=== PATIENT | male | born 1970 | race African-American/Black ===

== ENCOUNTER 2023-08-02 14:22 | Emergency (ER) | payer MEDICAID ==
[~2023-08-02] VITALS: Ht 180.3 cm; Wt 113.4 kg
[2023-08-02 15:02] VITALS: BP 140/68; PULSE 70; RESP 17; TEMP 97.4; O2SAT 98
[2023-08-02 15:48] VITALS: O2SAT 98
[2023-08-02 15:55] LABS: APPEARANCE,URINE CLEAR (CLEAR); BILIRUBIN,URINE NEGATIVE (NEGATIVE); BLOOD, URINE NEGATIVE (NEGATIVE); COLOR,URINE YELLOW (YELLOW); LEUKOCYTE ESTERASE ,URINE NEGATIVE (NEGATIVE); NITRITE, URINE NEGATIVE (NEGATIVE); PROTEIN,URINE NEGATIVE (NEGATIVE); UGLUCOSE NEGATIVE (NEGATIVE)
== END 2023-08-02 16:40 | disposition home or self-care (01) ==
LOC: MED 14:22
DX: R35.0 Frequency of micturition (principal); E11.9 Type 2 diabetes mellitus without complications; I10 Essential (primary) hypertension; F17.200 Nicotine dependence, unspecified, uncomplicated; Z98.890 Other specified postprocedural states
CPT/HCPCS: 81003; 99283

== ENCOUNTER 2024-07-05 13:19 | Emergency (ER) | payer MEDICAID ==
[~2024-07-05] VITALS: Ht 172.7 cm; Wt 123.5 kg
[2024-07-05 13:41] VITALS: BP 186/98; PULSE 85; RESP 18; TEMP 97.1; O2SAT 96
[2024-07-05 14:05] VITALS: O2SAT 96
[2024-07-05 14:28] LABS: APPEARANCE,URINE CLEAR (CLEAR); BILIRUBIN,URINE NEGATIVE (NEGATIVE); BLOOD, URINE NEGATIVE (NEGATIVE); COLOR,URINE YELLOW (YELLOW); LEUKOCYTE ESTERASE ,URINE NEGATIVE (NEGATIVE); NITRITE, URINE NEGATIVE (NEGATIVE); PROTEIN,URINE NEGATIVE (NEGATIVE); UGLUCOSE NEGATIVE (NEGATIVE); UROBILINOGEN,URINE 0.2 EU/dL (0.2 - 1)
[2024-07-05] MEDS ORDERED: IBUP-2213 PO (14:35)
[2024-07-05 15:21] VITALS: BP 152/98; PULSE 82; RESP 16; TEMP 98.1; O2SAT 99
== END 2024-07-05 15:21 | disposition home or self-care (01) ==
LOC: MED 13:19
DX: R33.9 Retention of urine, unspecified (principal); E11.9 Type 2 diabetes mellitus without complications; I10 Essential (primary) hypertension; Z98.890 Other specified postprocedural states
CPT/HCPCS: 51702; 81003; 99284